=== PATIENT | female | born 1995 | race Caucasian/White ===

== ENCOUNTER 2024-07-30 15:14 | Emergency (ER) | payer MEDICAID, SELFPAY ==
[2024-07-30 15:17] VITALS: BP 155/81; PULSE 99; RESP 20; TEMP 36.9; O2SAT 94; BMI 38.4
[2024-07-30 15:48] VITALS: PULSE 86; O2SAT 96
--- NOTE | 2024-07-30 15:58 | ED_ITS ---
HPI - Asthma General Chief Complaint: Asthma Stated Complaint: Asthma attack Time Seen by Provider: 07/30/24 15:17 History of Present Illness HPI Narrative: This patient is a 28-year-old female who has a history of asthma. She states that she gets a flare-up of her asthma symptoms 2 or 3 times a year. She reports using her albuterol inhaler but not getting much relief recently. She also takes Singulair but is not on any other medications. She does not report any fevers or signs of infection. She arrives here with normal vital signs and oximetry at 94-96% on room air. She is not using accessory muscles for breathing. Related Data Home Medications ?Medication ?Instructions ?Recorded ?Confirmed albuterol 90 mcg/actuation aerosol mcg inhalation 07/30/24 inhaler Previous Rx's ?Medication ?Instructions ?Recorded fluticasone propionate 110 1 puff inhalation BID #12 grams 07/30/24 mcg/actuation HFA aerosol inhaler ipratropium 0.5 mg-albuterol 3 mg 3 ml inhalation Q6-8H PRN #90 mL 07/30/24 (2.5 mg base)/3 mL nebulization soln methylprednisolone 4 mg tablets in See Rx Instructions PO .COMPLEX 07/30/24 a dose pack (Medrol ([place])) #21 ea Allergies Allergy/AdvReac Type Severity Reaction Status Date / Time Sulfa (Sulfonamide Allergy Verified 07/30/24 15:22 Antibiotics) Review of Systems Status of ROS Reports: 10 or more systems reviewed and unremarkable except as noted in History and below Narrative Constitutional: No fevers, no weight gain or loss. Eyes: No discharge. No vision changes. HENT: No congestion, no sore throat, no ear pain. Cardiovascular: No chest pain, no palpitations. Respiratory: Wheezes and mild shortness of breath. Gastrointestinal: No abdominal pain, no vomiting, no diarrhea. Genitourinary: No dysuria, no hematuria. Musculoskeletal: Normal range of motion. Skin: No rashes, no pruritis. Neurological: No dizziness, weakness, sensory change, speech change. Endo/Heme/Allergies: No bruising or bleeding. No polydipsia. Pysch: no suicidality, no anxiety, no insomnia. All other systems reviewed and are negative. PFSH PFSH Social History Do you use any of these nicotine containing products: Vaping Products How often do you have a drink containing alcohol: monthly or less AUDIT-C Alcohol total score: 1 Non-prescribed substance use: marijuana (any form) Exam Narrative: Exam Narrative: Constitutional: Well-developed, well-nourished, no acute distress. HEENT: Normocephalic, atraumatic. Neck: Normal range of motion. Nontender. Supple. Heart: Regular. No murmurs. Normal rate. Intact distal pulses. Lungs: Bilateral expiratory wheezes. Good air movement without use of accessory muscles for breathing. Abdomen: Normal bowel sounds. Nontender. No rebound tenderness. Genitalia: Deferred. Back: No midline tenderness. Normal range of motion. Extremities: Normal range of motion. No injury. Skin: Intact. No rash. Warm. No erythema or pallor. Neurologic: No altered sensation. No weakness. Alert and oriented. Psychiatric: No suicidality. No anxiety or depression. No insomnia. Nursing notes and vitals signs are reviewed. Const: Vital Signs, click to edit/add: Vital Signs - 24 hr 07/30/24 15:17 07/30/24 15:48 07/30/24 16:11 Temperature 98.5 F Pulse Rate [Right Pulse Oximeter] 99 86 89 Respiratory Rate 20 Blood Pressure [Ri ght Upper Arm] 155/81 H Pulse Oximetry 94 96 97 Oxygen Delivery Me thod Room Air Room Air Room Air Course Vital Signs Vital signs: Initial Vital Signs Temperature 98.5 F 07/30/24 15:17 Temperature Source Temporal Artery Scan 07/30/24 15:17 Pulse Rate 99 07/30/24 15:17 Pulse Rhythm Regular 07/30/24 15:17 Pulse Strength 3+ Normal 07/30/24 15:17 Respiratory Rate 20 07/30/24 15:17 Blood Pressure 155/81 H 07/30/24 15:17 Blood Pressure Mean 105 07/30/24 15:17 Blood Pressure Position Sitting 07/30/24 15:17 Pulse Oximetry 94 07/30/24 15:17 Oxygen Delivery Method Room Air 07/30/24 15:17 Vital Signs Temperature 98.5 F 07/30/24 15:17 Pulse Rate 99 07/30/24 15:17 Respiratory Rate 20 07/30/24 15:17 Blood Pressure 155/81 H 07/30/24 15:17 Pulse Oximetry 94 07/30/24 15:17 Oxygen Delivery Method Room Air 07/30/24 15:17 Temperature 98.5 F 07/30/24 15:17 Pulse Rate 89 07/30/24 16:11 Respiratory Rate 20 07/30/24 15:17 Blood Pressure 155/81 H 07/30/24 15:17 Pulse Oximetry 97 07/30/24 16:11 Oxygen Delivery Method Room Air 07/30/24 16:11 Medications Administered Medications: Discontinued Medications Generic Name Dose Route Start Last Admin Trade Name Rita PRN Reason Stop Dose Admin Albuterol/Ipratropium 1 neb 07/30/24 15:57 07/30/24 16:11 Iprat-Albut 0.5-2.5 Mg/3 Ml Neb IH 07/30/24 15:58 1 neb ONCE ONE Administration Dexamethasone 10 mg 07/30/24 15:57 07/30/24 16:08 Dexamethasone 10 Mg/Ml Inj PO 07/30/24 15:58 10 mg ONCE ONE Administration MDM - Asthma MDM Narrative Medical decision making narrative: This patient comes in because of a flare-up of her asthma symptoms. She has been using albuterol inhaler without much relief now. She did receive a DuoNeb treatment here and an oral dose of dexamethasone. This brought improvement to her symptoms. Respiratory therapy also came to evaluate and give advice for ongoing management. Recommended that she also use a preventative medicine such as Flovent. The patient symptoms have improved with DuoNeb treatment. She rec eived prescription for Flovent and a Medrol Dosepak along with some DuoNeb medications. I did review guidelines for management of her asthma symptoms and encouraged her to return at any time if worsening symptoms are not managed with these medications. Discharge Plan Discharge Clinical Impression: Asthma with acute exacerbation Patient Disposition: Home, Self-Care Condition: Improved Additional Instructions: Use Flovent daily as prescribed. Use albuterol as needed and directed. Follow up with MD or return if worsening symptoms occur. Prescriptions: New methylprednisolone [Medrol ([place])] 4 mg tablets,dose pack See Rx Instructions .ROUTE .COMPLEX Qty: 21 0RF Rx Instructions: orally per package directions fluticasone propionate 110 mcg/actuation HFA aerosol inhaler 1 puff inhalation BID Qty: 12 2RF ipratropium-albuterol 0.5 mg-3 mg(2.5 mg base)/3 mL solution for nebulization 3 ml inhalation Q6-8H PRNQty: 90 0RF No Action albuterol 90 mcg/actuation aerosol inhalation Follow Up/Referrals: Provider,Not a Local [Primary Care Provider] - Stand Alone Forms: [facility] Info Instructions
[2024-07-30] MEDS: dexAMETHasone 10 MG/ML inj PO (16:08)
[2024-07-30 16:11] VITALS: PULSE 89; O2SAT 97
[2024-07-30] MEDS: IPRAT-ALBUT 0.5-2.5 MG/3 ML NEB 1 NEB IH (16:11)
[2024-07-30 16:52] VITALS: PULSE 85; O2SAT 95
== END 2024-07-30 16:53 | disposition home or self-care (01) ==
PROVIDERS: Emergency Provider Emergency Medicine Emergency Medical Services
DX: J45.901 Unspecified asthma with (acute) exacerbation (principal)
CPT/HCPCS: 99283; 99284; J1100

== ENCOUNTER 2024-10-03 02:00 | Emergency (ER) | payer MEDICAID, SELFPAY ==
--- NOTE | 2024-10-03 02:05 | ED_ITS ---
HPI - General Adult General Time Seen by Provider: 02:05 Date Seen: 10/03/24 Chief complaint: Asthma Stated complaint: Asthma attack Time Seen by Provider: 10/03/24 02:05 Source: patient, RN notes reviewed and old records reviewed Mode of arrival: ambulatory Limitations: no limitations History of Present Illness HPI narrative: 29-year-old female with history of asthma, presents with shortness of breath. Patient notes upper respiratory symptoms with cough and runny nose for the last couple of days, increased albuterol usage yesterday and then woke up this mornin g with increased wheezing. Chest tightness but no other chest pain. Denies lower extremity swelling, nausea, vomiting, diarrhea. No fevers or chills. Started menstrual cycle today, had IUD removed earlier in the month. Related Data Home Medications ?Medication ?Instructions ?Recorded ?Confirmed albuterol 90 mcg/actuation aerosol mcg inhalation 07/30/24 inhaler Previous Rx's ?Medication ?Instructions ?Recorded fluticasone propionate 110 1 puff inhalation BID #12 grams 07/30/24 mcg/actuation HFA aerosol inhaler ipratropium 0.5 mg-albuterol 3 mg 3 ml inhalation Q6-8H PRN #90 mL 07/30/24 (2.5 mg base)/3 mL nebulization soln methylprednisolone 4 mg tablets in See Rx Instructions PO .COMPLEX 07/30/24 a dose pack (Medrol ([place])) #21 ea amoxicillin 875 mg-potassium 1 tab PO BID #10 tabs 10/03/24 clavulanate 125 mg tablet azithromycin 250 mg tablet 250 mg PO DAILY 4 days #4 tabs 10/03/24 ipratropium 0.5 mg-albuterol 3 mg 3 ml inhalation Q6H PRN #90 mL 10/03/24 (2.5 mg base)/3 mL nebulization soln prednisone 50 mg tablet 50 mg PO DAILY #4 tabs 10/03/24 Allergies Allergy/AdvReac Type Severity Reaction Status Date / Time Sulfa (Sulfonamide Allergy Verified 07/30/24 15:22 Antibiotics) PFSH PFS Social History Do you use any of these nicotine containing products: Vaping Products How often do you have a drink containing alcohol: monthly or less AUDIT-C Alcohol total score: 1 Non-prescribed substance use: marijuana (any form) service: No Exam Narrative: Exam Narrative: General: Well-developed and well-nourished, no acute distress Head: Atraumatic and normocephalic Eyes: Pupils are equal reactive, extraocular motions intact, conjunctiva clear ENT: External nose and ears are normal, posterior pharynx without erythema or exudate Neck: No midline cervical tenderness, full spontaneous range of motion the neck, trachea midline, no adenopathy Heart: Regular rate and rhythm no murmurs or thrills Lungs: Diffuse inspiratory expiratory wheezes with crackles on the left, speaking in full sentences, no respiratory distress, tachypnea, or accessory muscle use Abdomen: Soft, nontender, nondistended with active bowel sounds Musculoskeletal: No tenderness, deformity, or edema Neurologic: Awake, alert, and oriented x3, no gross focal neurologic deficits, cranial nerves intact as tested Psych: Mood and affect are appropriate Skin: No rashes Const: Vital Signs, click to edit/add: Vital Signs - 24 hr 10/03/24 02:06 10/03/24 03:29 Temperature 98.6 F Pulse Rate [Left P ulse Oximeter] 100 102 H Respiratory Rate 20 16 Blood Pressure [Ri ght Upper Arm] 137/88 140/111 H Pulse Oximetry 94 96 Oxygen Delivery Me thod Room Air Course Course ED Course: Reviewed prior primary care office visit from September 13 which was encounter for IUD removal, also reviewed called primary care clinic on September 25 which was call for refill of her Singulair. Reviewed most recent emergency department visit from 07/30/2024 which was for asthma exacerbation treated with nebulizer treatments and discharged. Patient presents today with increased shortness of breath, increased cough for the last couple of days. Chest tightness but no oth er chest pain. Denies fevers or chills. On exam here, no respiratory distress, vital is stable, speaking in full sentences. Diminished air movement throughout all lung zheng with expiratory wheezes, also some crackles in the left base. Clinically suspect community-acquired pneumonia with asthma exacerbation. Patient given DuoNeb and prednisone in the emergency department will be started on azithromycin and Augmentin for home. Reevaluation(s) Time of Reevaluation #1: 02:54 Reevaluation #1: Patient rechecked after nebulizer treatment, lung sounds significantly improved, still with wheezing but much improved air movement and patient feels better. Additional albuterol nebulizer treatments will be given and plan for discharge Time of Reevaluation #2: 03:31 Reevaluation #2: Patient recheck, still trace expiratory wheezes but feels better and agreeable to go home. Vital Signs Vital signs: Initial Vital Signs Temperature 98.6 F 10/03/24 02:06 Temperature Source Temporal Artery Scan 10/03/24 02:06 Pulse Rate 100 10/03/24 02:06 Pulse Rhythm Regular 10/03/24 02:06 Respiratory Rate 20 10/03/24 02:06 Blood Pressure 137/88 10/03/24 02:06 Blood Pressure Mean 104 10/03/24 02:06 Blood Pressure Position Sitting 10/03/24 02:06 Pulse Oximetry 94 10/03/24 02:06 Oxygen Delivery Method Room Air 10/03/24 02:06 Vital Signs Temperature 98.6 F 10/03/24 02:06 Pulse Rate 100 10/03/24 02:06 Respiratory Rate 20 10/03/24 02:06 Blood Pressure 137/88 10/03/24 02:06 Pulse Oximetry 94 10/03/24 02:06 Oxygen Delivery Method Room Air 10/03/24 02:06 Temperature 98.6 F 10/03/24 02:06 Pulse Rate 102 H 10/03/24 03:29 Respiratory Rate 16 10/03/24 03:29 Blood Pressure 140/111 H 10/03/24 03:29 Pulse Oximetry 96 10/03/24 03:29 Oxygen Delivery Method Room Air 10/03/24 02:06 Medications Administered Medications: Discontinued Medications Generic Name Dose Route Start Last Admin Trade Name Freq PRN Reason Stop Dose Admin Albuterol 5 mg 10/03/24 02:54 10/03/24 03:01 Albuterol Sulfate 2.5 Mg/3 Ml Vial.Neb NEB 10/03/24 02:55 5 mg ONCE ONE Administration Albuterol/Ipratropium 1 neb 10/03/24 02:19 10/03/24 02:33 Iprat-Albut 0.5-2.5 Mg/3 Ml Neb IH 10/03/24 02:20 1 neb ONCE ONE Administration Amoxicillin/Clavulanate Potassium 875 mg 10/03/24 02:23 10/03/24 02:33 Amoxicillin/Clavulanate 875 Mg/125 Mg Tablet PO 10/03/24 02:24 875 mg ONCE ONE Administration Azithromycin 500 mg 10/03/24 02:23 10/03/24 02:33 Azithromycin 250 Mg Tablet PO 10/03/24 02:24 500 mg ONCE ONE Administration Prednisone 60 mg 10/03/24 02:19 10/03/24 02:33 Prednisone 20 Mg Tablet PO 10/03/24 02:20 60 mg ONCE ONE Administration Discharge Plan Discharge Clinical Impression: Asthma with acute exacerbation, Community acquired pneumonia Patient Disposition: Home, Self-Care Condition: Stable Instructions: Asthma (ED), Pneumonia (ED) Additional Instructions: Start prednisone October 04 as prescribed Start azithromycin October 04 as prescribed Start Augmentin October 03 in the evening as prescribed Albuterol 2 puffs or 1 nebulizer treatment every 2 hours while awake for 24 hours, then every 3 hours while awake for 24 hours, then every 4 hours as needed Activity Level: Activity as Tolerated Discharge Diet: Regular Prescriptions: New prednisone 50 mg tablet 50 mg PO DAILY Qty: 4 0RF Rx Instructions: Start on October 04 azithromycin 250 mg tablet 250 mg PO DAILY 4 Days Qty: 4 0RF Rx Instructions: start on day 2 of therapy on October 04 amoxicillin-pot clavulanate 875-125 mg tablet 1 tab PO BID Qty: 10 0RF ipratropium-albuterol 0.5 mg-3 mg(2.5 mg base)/3 mL solution for nebulization 3 ml inhalation Q6H PRNQty: 90 0RF No Action albuterol 90 mcg/actuation aerosol inhalation methylprednisolone [Medrol ([place])] 4 mg tablets,dose pack See Rx Instructions .ROUTE .COMPLEX Qty: 21 0RF Rx Instructions: orally per package directions fluticasone propionate 110 mcg/actuation HFA aerosol inhaler 1 puff inhalation BID Qty: 12 2RF ipratropium-albuterol 0.5 mg-3 mg(2.5 mg base)/3 mL solution for nebulization 3 ml inhalation Q6-8H PRNQty: 90 0RF Follow Up/Referrals: Provider,Not a Local [Non-Staff] - Stand Alone Forms: [employer] Info Instructions
[2024-10-03 02:06] VITALS: BP 137/88; PULSE 100; RESP 20; TEMP 37; O2SAT 94; BMI 37.5
[2024-10-03] MEDS: AMOXICILLIN/CLAVULANATE 875 mg/125 mg TABLET PO (02:33)
[2024-10-03] MEDS: predniSONE 20 MG TABLET 60 MG PO (02:33)
[2024-10-03] MEDS: IPRAT-ALBUT 0.5-2.5 MG/3 ML NEB 1 NEB IH (02:33)
[2024-10-03] MEDS: AZITHROMYCIN 250 MG TABLET 500 MG PO (02:33)
[2024-10-03] MEDS: ALBUTEROL SULFATE 2.5 MG/3 ML VIAL.NEB 5 MG NEB (03:01)
[2024-10-03 03:29] VITALS: BP 140/111; PULSE 102; RESP 16; O2SAT 96
[2024-10-03 04:16] LABS: PCR FLU A Negative PCR FLU A (Negative); PCR FLU B Negative PCR FLU B (Negative); PCR RSV Negative PCR RSV (Negative); SARS PCR* Negative SARS-CoV-2 (Negative)
== END 2024-10-03 03:41 | disposition home or self-care (01) ==
PROVIDERS: Emergency Provider Family Medicine; PCP Pediatrics
DX: J18.9 Pneumonia, unspecified organism (principal); J45.901 Unspecified asthma with (acute) exacerbation
CPT/HCPCS: 87631; 94640; 99283; 99284; A9270; J7512

== ENCOUNTER 2024-10-16 18:22 | Emergency (ER) | payer MEDICAID, SELFPAY ==
[2024-10-16 18:24] VITALS: BP 122/76; PULSE 147; RESP 22; TEMP 36.9; O2SAT 94; BMI 38.4
[2024-10-16] MEDS: IPRAT-ALBUT 0.5-2.5 MG/3 ML NEB 1 NEB IH (18:42)
--- NOTE | 2024-10-16 19:42 | ED.SOB ---
HPI - SOB/Dyspnea General Time Seen by Provider: 19:42 Date Seen: 10/16/24 Chief Complaint: Shortness of Breath/Dyspnea Stated Complaint: In a Asthma attack Time Seen by Provider: 10/16/24 19:42 Source: patient, RN notes reviewed and old records reviewed Mode of arrival: ambulatory Limitations: no limitations History of Present Illness HPI Narrative: This 29-year-old female is coming in with complaint of asthma attack and her inhaler is not working. She states the last couple hours her asthma has started to increase, try her albuterol inhaler and that did not help, did a DuoNeb at home. She is now out of these. She states she was diagnosed with pneumonia couple weeks ago here, took antibiotics, took prednisone. She does not think she has a new illness, no fevers or chills. [place] like she improved from that. She endorses a history of asthma since age 6. She does have seasonal and environmental allergens per her report. She has not seen an asthma or power regulator for at least a few years now, bleeds she has new allergies. She has been working with her primary care provider on her asthma, does have a follow-up next week. No fevers or chills as noted, no new symptoms of upper respiratory infection. MD elicited complaint: shortness of breath and cough Related Data Home oxygen amount: none Home Medications ?Medication ?Instructions ?Recorded ?Confirmed albuterol 90 mcg/actuation aerosol 90 mcg inhalation PRN 07/30/24 inhaler famotidine 20 mg tablet 20 mg PO BID 10/16/24 10/16/24 montelukast 10 mg tablet 10 mg PO QPM 10/16/24 10/16/24 Previous Rx's ?Medication ?Instructions ?Recorded fluticasone propionate 110 1 puff inhalation BID #12 grams 07/30/24 mcg/actuation HFA aerosol inhaler ipratropium 0.5 mg-albuterol 3 mg 3 ml inhalation Q6-8H PRN #90 mL 07/30/24 (2.5 mg base)/3 mL nebulization soln amoxicillin 875 mg-potassium 1 tab PO BID #10 tabs 10/03/24 clavulanate 125 mg tablet azithromycin 250 mg tablet 250 mg PO DAILY 4 days #4 tabs 10/03/24 ipratropium 0.5 mg-albuterol 3 mg 3 ml inhalation Q6H PRN #90 mL 10/03/24 (2.5 mg base)/3 mL nebulization soln albuterol sulfate 90 mcg/actuation 2 puff inhalation Q4-6H PRN 10/16/24 aerosol inhaler shortness of breath or wheezing #8.5 grams ipratropium 0.5 mg-albuterol 3 mg 3 ml inhalation Q6-8H PRN #90 mL 10/16/24 (2.5 mg base)/3 mL nebulization soln prednisone 20 mg tablet See Rx Instructions .Route 10/16/24 .COMPLEX #20 tabs Allergies Allergy/AdvReac Type Severity Reaction Status Date / Time Sulfa (Sulfonamide Allergy hives Verified 10/16/24 18:32 Antibiotics) [facility] Medical History (Updated 10/16/24 @ 21:32 by Albert Garza RN) GERD (gastroesophageal reflux disease) ?K21.9 - Gastro-esophageal reflux disease without esophagitis (ICD-10) Morbid obesity ?E66.01 - Morbid (severe) obesity due to excess calories (ICD-10) Low iron ?E61.1 - Iron deficiency (ICD-10) Asthma ?J45.909 - Unspecified asthma, uncomplicated (ICD-10) Surgical History (Updated 10/16/24 @ 21:32 by Albert Garza RN) No significant past surgical history Social History Do you use any of these nicotine containing products: Vaping Products How often do you have a drink containing alcohol: monthly or less AUDIT-C Alcohol total score: 1 Non-prescribed substance use: marijuana (any form) service: No Exam Const: Vital Signs, click to edit/add: Vital Signs - 24 hr 10/16/24 18:24 Temperature 98.5 F Pulse Rate [Right Pulse Oximeter] 147 H Respiratory Rate 22 Blood Pressure [Ri ght Upper Arm] 122/76 Pulse Oximetry 94 Oxygen Delivery Me thod Room Air This 29-year-old female is alert, interactive, no apparent distress. Nursing staff did do a DuoNeb in triage due to her work of breathing and her wheezing, we are seen her awhile after that, she feels she is already improved somewhat. She has a little bit of a tight cough occasionally, mostly her speech is normal, not hoarse, not affected by a coughing or breathing. She is not tachypneic, no accessory muscle use. Pupils equal round reactive, sclera clear, symmetrical facial function. Neck supple, no adenopathy or masses. Lungs with end-expiratory wheezing throughout, no crackles. CV regular rate and rhythm, no murmur, normal S1-S2, no S3-S4. Abdomen soft, nontender, nondistended. No lower extremity edema. Documenting provider has reviewed patient's vital signs: yes Course Course ED Course: Will continue to see if the DuoNeb improves her symptoms over time here. She certainly seems to have significant asthma, and is out of control. Will get a chest x-ray, will do some baseline labs. Will monitor, may need to give further nebulization. At this time will place an IV and give her 125 mg IV Solu-Medrol. Reevaluation(s) Time of Reevaluation #1: 21:10 Reevaluation #1: Patient feels better, is resting. Lungs have an occasional end expiratory wheeze but overall improved air movement, decreased wheezing overall. Reviewed that she has a normal chest x-ray, white become mildly elevated but she was recently on steroids. She is not sure what dosage of fluticasone she is on. She does have a follow-up with her primary this Thursday which I do think she needs to keep. I do not think antibiotics are indicated but her asthma is not in control. She may need further inhaled medications, do recommend to her given her history of allergies that she really probably should see an asthma/power regulator specialist. She does tell me that she needs a refill of the DuoNebs and her albuterol inhaler refilled. Did review that antibiotics do not appear to be indicated at this time and seems to be asthma exacerbation. Vital Signs Vital signs: Initial Vital Signs Respiratory Effort Labored 10/16/24 18:23 Respiratory Depth Shallow 10/16/24 18:23 Respiratory Pattern Tachypnea 10/16/24 18:23 Vital Signs Temperature 98.5 F 10/16/24 18:24 Pulse Rate 147 H 10/16/24 18:24 Respiratory Rate 22 10/16/24 18:24 Blood Pressure 122/76 10/16/24 18:24 Pulse Oximetry 94 10/16/24 18:24 Oxygen Delivery Method Room Air 10/16/24 18:24 Temperature 98.5 F 10/16/24 18:24 Pulse Rate 147 H 10/16/24 18:24 Respiratory Rate 22 10/16/24 18:24 Blood Pressure 122/76 10/16/24 18:24 Pulse Oximetry 94 10/16/24 18:24 Oxygen Delivery Method Room Air 10/16/24 18:24 Medications Administered Medications: Discontinued Medications Generic Name Dose Route Start Last Admin Trade Name Rita PRN Reason Stop Dose Admin Albuterol/Ipratropium 1 neb 10/16/24 18:38 10/16/24 18:42 Iprat-Albut 0.5-2.5 Mg/3 Ml Neb IH 10/16/24 18:39 1 neb ONCE ONE Administration Methylprednisolone Sodium Succinate 125 mg 10/16/24 19:56 10/16/24 20:00 Methylprednisolone Sod Succ 62.5 Mg/Ml (125) IVP 10/16/24 19:57 125 mg ONCE ONE Administration MDM - SOB/Dyspnea MDM Narrative Medical decision making narrative: Patient was in the ER on 10/03/2024. Was treated with DuoNeb for her asthma and wheezing, discharged with azithromycin, prednisone 50 mg daily for 4 days, 5 days of Augmentin. Was also given a prescription for DuoNebs. Lab Data Attestation: I reviewed the patient's lab results. Labs: Lab Results 10/16/24 Range/Units 20:03 WBC 12.58 H (4.50-11.00) K/uL RBC 4.64 (4.00-5.20) m/uL Hgb 13.0 (12.0-16.0) gm/dL Hct 41.0 (33.0-51.0) % MCV 88 (80-100) fL MCH 28 (26-34) pg MCHC 32 (32-36) gm/dL RDW Coeff of Carolyn 13.4 (11.5-15.5) % Plt Count 248 (140-440) K/uL Neut % (Auto) 73.2 H (42.0-72.0) % Lymph % (Auto) 18.0 L (20-44) % [place] % (Auto) 5.0 (0.0-11.0) % Eos % (Auto) 3.4 (0.0-7.0) % Baso % (Auto) 0.2 (0.0-3.0) % Neut # (Auto) 9.20 H (1.7-7.0) K/uL Lymph # (Auto) 2.30 (0.90-2.90) K/uL [place] # (Auto) 0.60 (0.00-0.90) K/UL Eos # (Auto) 0.40 (0.00-0.50) K/uL Baso # (Auto) 0.00 (0.00-0.30) K/uL Abs Immat Gran (auto) 0.00 (0.00-0.30) K/uL Imm/Tot Granulo (auto) 0.2 % VBG pH 7.388 (7.32-7.43) VBG pCO2 42 (40-50) mmHG VBG pO2 46.4 (25-47) mmHG VBG HCO3 25 (21-28) mmol/L Sodium 138 (135-149) mmol/L Potassium 4.0 (3.6-5.1) mmol/L Chloride 107 (96-114) mmol/L Carbon Dioxide 23 (20-32) mmol/L Anion Gap 8 (7-15) mEq/L BUN 9 (5-24) mg/dL Creatinine 0.9 (0.5-1.5) mg/dL Estimated Creat Clear 74.26 Estimated GFR 90 ml/min Glucose 115 (60-115) mg/dL Calcium 9.0 (8.4-10.6) mg/dL Total Bilirubin 0.2 (0.1-1.5) mg/dL AST 16 (12-35) U/L ALT 13 (4-35) U/L Alkaline Phosphatase 66 (40-150) U/L C-Reactive Protein 1.5 H (0.5-1.0) mg/dL Total Protein 6.7 (6.0-8.3) g/dL Albumin 4.0 (3.3-5.0) g/dL Procalcitonin < 0.03 L (<0.50) ng/mL Imaging Data Chest x-ray: Attestation: I have reviewed the pertinent imaging results. My impression: I see no evidence of any infiltrate or consolidation on my preliminary review. Radiologist's impression: Patient: ALIA CEBALLOS Facility:?[facility] Patient ID:?[id number] Site Patient ID:?[id number]. Site :?[id number] Study:?XRay-Chest 2V-10/16/2024 8:14:37 PM Ordering Physician:Emile Richards Final Report: INDICATION: : Asthma exacerbation TECHNIQUE: Two view chest. FINDINGS: The lungs are clear. The heart, mediastinum and pulmonary vessels are of normal size. There is no evidence of pleural disease. IMPRESSION: Negative chest. Dictated by Christie Tabares MD @ 10/16/2024 8:43:25 PM (Electronic Signature) Discharge Plan Discharge Clinical Impression: Asthma with acute exacerbation Patient Disposition: Home, Self-Care Condition: Stable Instructions: Asthma (ED) Additional Instructions: Start oral prednisone tomorrow and take as prescribed. I have her feel the DuoNebs and the albuterol inhaler. Keep your clinic follow-up on Thursday, talk about potential referral to Asthma/pediatric clinical nurse specialist. If you feel you are worsening or have further concerns, please seek re-evaluation. Activity Level: No Restrictions Prescriptions: New prednisone 20 mg tablet See Rx Instructions .ROUTE .COMPLEX Qty: 20 0RF Rx Instructions: 60mg po daily for 3 days, then 40mg daily for 3 days, then 20mg daily for 3 days, then 10mg daily for 4 days ipratropium-albuterol 0.5 mg-3 mg(2.5 mg base)/3 mL solution for nebulization 3 ml inhalation Q6-8H PRNQty: 90 0RF albuterol sulfate 90 mcg/actuation HFA aerosol inhaler 2 puff inhalation Q4-6H PRN (Reason: shortness of breath or wheezing) Qty: 8.5 0RF No Action famotidine 20 mg tablet 20 mg PO BID montelukast 10 mg tablet 10 mg PO QPM albuterol 90 mcg/actuation aerosol 90 mcg inhalation PRN fluticasone propionate 110 mcg/actuation HFA aerosol inhaler 1 puff inhalation BID Qty: 12 2RF ipratropium-albuterol 0.5 mg-3 mg(2.5 mg base)/3 mL solution for nebulization 3 ml inhalation Q6-8H PRNQty: 90 0RF azithromycin 250 mg tablet 250 mg PO DAILY 4 Days Qty: 4 0RF Rx Instructions: start on day 2 of therapy on October 04 amoxicillin-pot clavulanate 875-125 mg tablet 1 tab PO BID Qty: 10 0RF ipratropium-albuterol 0.5 mg-3 mg(2.5 mg base)/3 mL solution for nebulization 3 ml inhalation Q6H PRNQty: 90 0RF Follow Up/Referrals: Shabana Dougherty MD [Primary Care Provider] - Stand Alone Forms: [employer] Info Instructions
[2024-10-16 19:55] VITALS: O2SAT 98
--- NOTE | 2024-10-16 19:56 | CRLHL7_ITS ---
For Patients: As a result of the Century Cures Act, medical imaging exams and procedure reports are released immediately into your electronic medical record. You may view this report before your referring provider. If you have questions, please contact your health care provider. INDICATION: : Asthma exacerbation TECHNIQUE: Two view chest. FINDINGS: The lungs are clear. The heart, mediastinum and pulmonary vessels are of normal size. There is no evidence of pleural disease. IMPRESSION: Negative chest. Dictated by Christie Tabares MD @ 10/16/2024 8:43:25 PM (Electronically Signed)
[2024-10-16] MEDS: METHYLPREDNISOLONE SOD SUCC 62.5 MG/ML (125) 125 MG IVP (20:00)
[2024-10-16 20:06] LABS: HCO3 VBG 25 mmol/L (21-28); PCO2 VBG 42 mmHG (40-50); PO2 VBG 46.4 mmHG (25-47); pH VBG 7.388 (7.32-7.43)
[2024-10-16 20:07] LABS: Basophils Percent Auto 0.2 % (0.0-3.0); Eosinophils Percent Auto 3.4 % (0.0-7.0); Immature Granulocytes Pct Auto 0.2 %; Mean Corpuscular HGB Conc 32 gm/dL (32-36); Mean Corpuscular Hemoglobin 28 pg (26-34); Mean Corpuscular Volume 88 fL (80-100); Neutrophils Percent Auto 73.2 % (42.0-72.0); Platelet Count* 248 K/uL (140-440); RDW Coefficient of Variation % 13.4 % (11.5-15.5); Red Blood Count 4.64 m/uL (4.00-5.20); White Blood Count* 12.58 K/uL (4.50-11.00)
[2024-10-16 20:08] LABS: Slide Review Reflex No
[2024-10-16 20:22] LABS: Chloride* 107 mmol/L (96-114); Sodium* 138 mmol/L (135-149)
[2024-10-16 20:24] LABS: Anion Gap 8 mEq/L (7-15); Bilirubin Total* 0.2 mg/dL (0.1-1.5); Carbon Dioxide* 23 mmol/L (20-32); Creatinine* 0.9 mg/dL (0.5-1.5); Est. Creatinine Clearance* 74.26; Estimated Glomerular Filt Rate 90 ml/min
[2024-10-16 20:25] LABS: Alanine Aminotransferase* 13 U/L (4-35); Alkaline Phosphatase* 66 U/L (40-150); Aspartate Amino Transferase* 16 U/L (12-35); Blood Urea Nitrogen* 9 mg/dL (5-24); Glucose* 115 mg/dL (60-115); Total Protein* 6.7 g/dL (6.0-8.3)
[2024-10-16 20:40] LABS: C Reactive Protein* 1.5 mg/dL (0.5-1.0)
[2024-10-16 21:07] LABS: Procalcitonin* < 0.03 ng/mL (<0.50)
[2024-10-16 21:34] VITALS: BP 132/74; PULSE 99; RESP 22; TEMP 36.9; O2SAT 98
[2024-10-16 21:37] VITALS: BP 132/74; PULSE 99; RESP 22; TEMP 36.9
== END 2024-10-16 21:38 | disposition home or self-care (01) ==
PROVIDERS: Emergency Provider Family Medicine; PCP Pediatrics
DX: J45.901 Unspecified asthma with (acute) exacerbation (principal)
CPT/HCPCS: 36415; 71046; 80053; 82803; 84145; 85025; 86140; 94761; 96374; 99283; 99284; J2919